=== PATIENT | male | born 1970 | race Caucasian/White ===

== ENCOUNTER 2019-07-13 19:56 | Emergency (ER) | payer OTHER ==
[~2019-07-13] VITALS: Ht 165.1 cm; Wt 77.3 kg
[2019-07-13] MEDS ORDERED: MORPHINE 4 MG/ML 1ML VIAL/SYRINGE (J2270) IV ONE (20:45)
[2019-07-13 21:18] LABS: BASO % 0.2 % (0.0-1.0); EOS % 0.3 % (0.0-3.0); HEMATOCRIT 42.4 % (42.0-52.0); HEMOGLOBIN 14.3 g/dl (13.5-17.5); LYMPH # 1.7 10^3/uL (1.5-5.0); LYMPH % 26.5 % (24.0-44.0); MEAN CORPUSCULAR HEMOGLOBIN 30.8 pg (27.0-33.0); MEAN CORPUSCULAR HGB CONC 33.7 g/dl (32.0-36.5); MEAN CORPUSCULAR VOLUME 91.2 fl (80.0-96.0); MONO # 0.5 10^3/uL (0.0-0.8); MONO % 7.2 % (0.0-5.0); NEUTROPHILS # 4.1 10^3/uL (1.5-8.5); NEUTROPHILS % 65.6 % (36.0-66.0); PLATELET COUNT, AUTOMATED 223 10^3/uL (150-450); RED BLOOD COUNT 4.65 10^6/uL (4.30-6.10); WHITE BLOOD COUNT 6.3 10^3/uL (4.0-10.0)
[2019-07-13 22:08] LABS: ALT/SGPT 7 U/L (12-78); BILIRUBIN,TOTAL 0.8 MG/DL (0.2-1.0); BLOOD UREA NITROGEN 13 MG/DL (7-18); CARBON DIOXIDE LEVEL 27 MEQ/L (21-32); CHLORIDE LEVEL 102 MEQ/L (98-107); CREATININE FOR GFR 1.08 MG/DL (0.70-1.30); GLOMERULAR FILTRATION RATE > 60.0 (>56); GLUCOSE, FASTING 100 MG/DL (70-100); LIPASE 111 U/L (73-393); POTASSIUM SERUM 3.7 MEQ/L (3.5-5.1); SODIUM LEVEL 138 MEQ/L (136-145); TOTAL PROTEIN 6.8 GM/DL (6.4-8.2)
[2019-07-13] MEDS ORDERED: ISOVUE-370 76% 100ML VIAL (Q9967) As Ordered ONE (22:15)
[2019-07-13 23:21] LABS: APPEARANCE, URINE CLEAR (CLEAR); BACTERIA, URINE AUTO NEGATIVE (NEGATIVE); BILIRUBIN, URINE AUTO NEGATIVE (NEGATIVE); BLOOD, URINE BLOOD NEGATIVE (NEGATIVE); COLOR, URINE YELLOW (YELLOW); GLUCOSE, URINE (UA) AUTO NEGATIVE (NEGATIVE); KETONE, URINE AUTO NEGATIVE (NEGATIVE); LEUKOCYTE ESTERASE, URINE AUTO NEGATIVE (NEGATIVE); NITRITE, URINE AUTO NEGATIVE (NEGATIVE); PROTEIN, URINE AUTO NEGATIVE (NEGATIVE); RBC, URINE AUTO 1 /HPF (0-3); SPECIFIC GRAVITY URINE AUTO 1.056 (1.002-1.035); SQUAMOUS EPITHELIAL CELL UR AU 0 /HPF (0-6); WBC, URINE AUTO 0 /HPF (0-3)
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
[2019-07-14 00:08] VITALS: BP 104/67
== END 2019-07-14 00:10 | disposition home or self-care (01) ==
LOC: M ED 19:56
DX: R10.30 Lower abdominal pain, unspecified (principal); R39.12 Poor urinary stream
CPT/HCPCS: 74177; 80053; 81001; 83690; 85025; 99284; Q9967

== ENCOUNTER → 2019-08-01 | Outpatient (CLI) | payer MEDICAID, SELFPAY | LOC: M OUTALCOH 07:57 | PROVIDERS: ATTEND Psychiatry & Neurology Addiction Medicine | DX: F10.20 Alcohol dependence, uncomplicated (principal) ==

== ENCOUNTER 2019-08-22 15:00 | Outpatient (RCR) | payer MEDICAID, SELFPAY | END 2019-08-25 | LOC: M OUTALCOH 15:00 | PROVIDERS: ATTEND Psychiatry & Neurology Addiction Medicine | DX: F10.20 Alcohol dependence, uncomplicated (principal) ==

== ENCOUNTER → 2019-09-25 | Outpatient (RCR) | payer MEDICAID, SELFPAY | LOC: M OUTALCOH 08-28 16:00 | PROVIDERS: ATTEND Psychiatry & Neurology Addiction Medicine | DX: F10.20 Alcohol dependence, uncomplicated (principal) ==

== ENCOUNTER 2019-10-24 13:53 | Outpatient (RCR) | payer MEDICAID, SELFPAY | END 2019-10-25 | LOC: M OUTALCOH 13:53 | PROVIDERS: ATTEND Psychiatry & Neurology Addiction Medicine | DX: F10.20 Alcohol dependence, uncomplicated (principal) ==

== ENCOUNTER 2019-11-21 14:14 | Outpatient (RCR) | payer MEDICAID | END 2019-11-25 | LOC: M OUTALCOH 14:14 | PROVIDERS: ATTEND Psychiatry & Neurology Addiction Medicine | DX: F10.20 Alcohol dependence, uncomplicated (principal) ==

== ENCOUNTER 2019-12-24 13:12 | Outpatient (RCR) | payer MEDICAID | END 2019-12-25 | LOC: M OUTALCOH 13:12 | PROVIDERS: ATTEND Psychiatry & Neurology Addiction Medicine | DX: F10.20 Alcohol dependence, uncomplicated (principal) ==

== ENCOUNTER 2020-01-24 16:00 | Outpatient (RCR) | payer MEDICAID, OTHER | END 2020-01-25 | LOC: M OUTALCOH 16:00 | PROVIDERS: ATTEND Psychiatry & Neurology Addiction Medicine | DX: F10.20 Alcohol dependence, uncomplicated (principal) ==

== ENCOUNTER → 2020-02-25 | Outpatient (RCR) | payer MEDICAID, OTHER | LOC: M OUTALCOH 01-28 16:00 | PROVIDERS: ATTEND Psychiatry & Neurology Addiction Medicine | DX: F10.20 Alcohol dependence, uncomplicated (principal) ==

== ENCOUNTER 2020-03-31 14:31 | Outpatient (RCR) | payer MEDICAID | END 2020-04-26 | LOC: M OUTALCOH 14:31 | PROVIDERS: ATTEND Psychiatry & Neurology Addiction Medicine | DX: F10.20 Alcohol dependence, uncomplicated (principal) ==

== ENCOUNTER 2020-05-15 15:24 | Outpatient (RCR) | payer MEDICAID | END 2020-05-26 | LOC: M OUTALCOH 15:24 | PROVIDERS: ATTEND Psychiatry & Neurology Addiction Medicine | DX: F10.20 Alcohol dependence, uncomplicated (principal) ==

== ENCOUNTER 2020-06-12 14:56 | Outpatient (RCR) | payer MEDICAID | END 2020-06-26 | LOC: M OUTALCOH 14:56 | PROVIDERS: ATTEND Psychiatry & Neurology Addiction Medicine | DX: F10.20 Alcohol dependence, uncomplicated (principal) ==

== ENCOUNTER 2020-07-24 16:00 | Outpatient (RCR) | payer MEDICAID | END 2020-07-27 | LOC: M OUTALCOH 16:00 | PROVIDERS: ATTEND Psychiatry & Neurology Psychiatry | DX: F10.20 Alcohol dependence, uncomplicated (principal) ==

== ENCOUNTER 2020-09-02 16:00 | Outpatient (RCR) | payer OTHER | END 2020-09-24 | LOC: M OUTALCOH 16:00 | PROVIDERS: ATTEND Psychiatry & Neurology Psychiatry | DX: F10.20 Alcohol dependence, uncomplicated (principal) ==

== ENCOUNTER 2020-10-07 15:28 | Outpatient (RCR) | payer OTHER | END 2020-10-24 | LOC: M OUTALCOH 15:28 | PROVIDERS: ATTEND Psychiatry & Neurology Psychiatry | DX: F10.20 Alcohol dependence, uncomplicated (principal) ==

== ENCOUNTER 2020-11-18 15:17 | Outpatient (RCR) | payer OTHER | END 2020-11-24 | LOC: M OUTALCOH 15:17 | PROVIDERS: ATTEND Psychiatry & Neurology Psychiatry | DX: F10.20 Alcohol dependence, uncomplicated (principal) ==

== ENCOUNTER 2020-12-23 15:04 | Outpatient (RCR) | payer OTHER | END 2020-12-24 | LOC: M OUTALCOH 15:04 | PROVIDERS: ATTEND Psychiatry & Neurology Psychiatry | DX: F10.20 Alcohol dependence, uncomplicated (principal) ==

== ENCOUNTER 2021-01-27 16:35 | Outpatient (RCR) | payer OTHER | END 2021-02-24 | LOC: M OUTALCOH 16:35 | PROVIDERS: ATTEND Psychiatry & Neurology Psychiatry | DX: F10.20 Alcohol dependence, uncomplicated (principal) ==

== ENCOUNTER 2021-03-03 13:10 | Outpatient (RCR) | payer OTHER | END 2021-03-26 | LOC: M OUTALCOH 13:10 | PROVIDERS: ATTEND Psychiatry & Neurology Psychiatry | DX: F10.20 Alcohol dependence, uncomplicated (principal) ==

== ENCOUNTER 2021-04-07 15:04 | Outpatient (RCR) | payer OTHER | END 2021-04-26 | LOC: M OUTALCOH 15:04 | PROVIDERS: ATTEND Psychiatry & Neurology Psychiatry | DX: F10.20 Alcohol dependence, uncomplicated (principal) ==

== ENCOUNTER 2021-05-13 14:31 | Outpatient (RCR) | payer OTHER | END 2021-05-26 | LOC: M OUTALCOH 14:31 | PROVIDERS: ATTEND Psychiatry & Neurology Psychiatry | DX: F10.20 Alcohol dependence, uncomplicated (principal) ==

== ENCOUNTER 2021-06-16 13:07 | Outpatient (RCR) | payer OTHER | END 2021-06-26 | LOC: M OUTALCOH 13:07 | PROVIDERS: ATTEND Psychiatry & Neurology Psychiatry | DX: F10.20 Alcohol dependence, uncomplicated (principal) ==

== ENCOUNTER 2021-07-28 13:03 | Outpatient (RCR) | payer OTHER | END 2021-08-24 | LOC: M OUTALCOH 13:03 | PROVIDERS: ATTEND Psychiatry & Neurology Psychiatry | DX: F10.20 Alcohol dependence, uncomplicated (principal) ==

== ENCOUNTER 2021-09-08 13:07 | Outpatient (RCR) | payer OTHER | END 2021-09-24 | LOC: M OUTALCOH 13:07 | PROVIDERS: ATTEND Psychiatry & Neurology Psychiatry | DX: F10.20 Alcohol dependence, uncomplicated (principal) ==

== ENCOUNTER 2021-10-15 13:58 | Outpatient (RCR) | payer OTHER | END 2021-10-24 | LOC: M OUTALCOH 13:58 | PROVIDERS: ATTEND Psychiatry & Neurology Psychiatry | DX: F10.20 Alcohol dependence, uncomplicated (principal) ==

== ENCOUNTER 2021-11-26 13:03 | Outpatient (RCR) | payer OTHER | END 2021-12-24 | LOC: M OUTALCOH 13:03 | PROVIDERS: ATTEND Psychiatry & Neurology Psychiatry | DX: F10.20 Alcohol dependence, uncomplicated (principal) ==

== ENCOUNTER 2022-01-07 13:06 | Outpatient (RCR) | payer OTHER | END 2022-01-24 | LOC: M OUTALCOH 13:06 | PROVIDERS: ATTEND Psychiatry & Neurology Psychiatry | DX: F10.20 Alcohol dependence, uncomplicated (principal) ==

== ENCOUNTER 2022-02-25 14:30 | Outpatient (RCR) | payer OTHER | END 2022-03-26 | LOC: M OUTALCOH 14:30 | PROVIDERS: ATTEND Psychiatry & Neurology Psychiatry | DX: F10.20 Alcohol dependence, uncomplicated (principal) ==

== ENCOUNTER 2022-04-01 12:59 | Outpatient (RCR) | payer OTHER | END 2022-04-26 | LOC: M OUTALCOH 12:59 | PROVIDERS: ATTEND Psychiatry & Neurology Psychiatry | DX: F10.20 Alcohol dependence, uncomplicated (principal) ==

== ENCOUNTER 2022-05-13 13:01 | Outpatient (RCR) | payer OTHER | END 2022-05-26 | LOC: M OUTALCOH 13:01 | PROVIDERS: ATTEND Psychiatry & Neurology Psychiatry | DX: F10.20 Alcohol dependence, uncomplicated (principal) ==